=== PATIENT | male | born 1995 | race American Indian/Alaskan Native ===

== ENCOUNTER 2018-11-21 16:01 | Emergency (ER) | payer OTHER ==
[2018-11-21 16:12] VITALS: BP 116/71
--- NOTE | 2018-11-21 16:13 | Event Note ---
ED Screening Note Date of service: 11/21/18 Time: 16:11 ED Screening Note: 23 y/o male comes in for vomited twice. This initial assessment/diagnostic orders/clinical plan/treatment(s) is/are subject to change based on patients health status, clinical progression and re- assessment by fellow clinical providers in the ED. Further treatment and workup at subsequent clinical providers discretion. Patient/guardian urged not to elope from the ED as their condition may be serious if not clinically assessed and managed. Initial orders include:
[2018-11-21 17:08] LABS: Basophils # (Auto) 0.1 K/mm3 (0.0-0.1); Basophils % (Auto) 0.9 % (0.0-1.8); Eosinophils # (Auto) 0.1 K/mm3 (0.0-0.4); Eosinophils % (Auto) 2.7 % (0.0-4.3); Hematocrit 40.3 % (35.5-45.6); Hemoglobin 13.8 gm/dl (11.8-15.2); Lymphocytes # (Auto) 1.3 K/mm3 (1.2-5.4); Lymphocytes % (Auto) 24.4 % (13.4-35.0); Mean Corpuscular HGB Conc 34 % (32-34); Mean Corpuscular Volume 99 fl (84-94); Monocytes # (Auto) 0.6 K/mm3 (0.0-0.8); Monocytes % (Auto) 11.2 % (0.0-7.3); Platelet Count 238 K/mm3 (140-440); Red Blood Count 4.06 M/mm3 (3.65-5.03); Red Cell Distribution Width 12.3 % (13.2-15.2)
[2018-11-21 17:24] LABS: Alanine Aminotransferase 31 units/L (7-56); Albumin 4.3 g/dL (3.9-5); BUN/Creatinine Ratio 8; Blood Urea Nitrogen 8 mg/dL (9-20); Calcium 9.2 mg/dL (8.4-10.2); Hemolysis Index 5
--- NOTE | 2018-11-21 17:53 | Emergency Department Report ---
HPI - General Chief Complaint: Abdominal Pain Time Seen by Provider: 11/21/18 17:41 - HPI HPI: Room 33 The patient is a 23-year-old male presenting with chief complaint of abdominal pain. The patient states last night several hours after eating pizza and salad developed cramping in his right upper quadrant. Patient states the cramping is intermittent in the last occurred earlier this morning prompting him to come to the emergency department. Patient admits to 2 episodes of nausea and vomiting. Patient states he had a similar episode in 2016 and was told it was food poisoning. Patient currently denies abdominal pain. Patient denies diarrhea or fever Location: [See above] Duration: [See above] Quality: [See above] Severity: [See above] Modifying factors: [see above] Context: [see above] Mode of transportation: [not driving] ED Past Medical Hx - Past Medical History Previous Medical History?: No - Surgical History Hx Appendectomy: Yes - Family History Family history: no significant - Social History Smoking Status: Current Every Day Smoker (1/7 pack per day) Substance Use Type: None (denies illicit drug use), Alcohol (occasional) - Medications Home Medications: Home Medications Medication Instructions Recorded Confirmed Last Taken Type Acetaminophen/Codeine [Tylenol #3] 1 tab PO Q6H PRN #25 tab 10/06/14 Unknown Rx Ibuprofen [Motrin] 600 mg PO Q8H PRN #40 tablet 10/06/14 Unknown Rx Famotidine [Pepcid] 20 mg PO BID #20 tablet 11/21/18 Unknown Rx Ondansetron [Zofran ODT TAB] 8 mg PO Q8HR #20 tab.rapdis 11/21/18 Unknown Rx traMADol [Ultram] 50 mg PO Q6HR PRN #7 tablet 11/21/18 Unknown Rx ED Review of Systems ROS: Stated complaint: ABDOMINAL PAIN Other details as noted in HPI Constitutional: denies: fever Eyes: denies: eye pain ENT: denies: throat pain Respiratory: no symptoms reported Cardiovascular: denies: chest pain Endocrine: no symptoms reported Gastrointestinal: abdominal pain, nausea, vomiting. denies: diarrhea Genitourinary: denies: dysuria Musculoskeletal: denies: back pain Neurological: denies: headache Physical Exam - Physical Exam Vital Signs: Vital Signs 11/21/18 16:11 Temperature 98.4 F Pulse Rate 93 H Respiratory 18 Rate Blood Pressure 116/71 [Left] O2 Sat by Pulse 98 Oximetry Physical Exam: GENERAL: The patient is well-developed well-nourished male lying on stretcher not appearing to be in acute distress. [] HEENT: Normocephalic. Atraumatic. Extraocular motions are intact. Patient has moist mucous membranes. NECK: Supple. Trachea midline CHEST/LUNGS: Clear to auscultation. There is no respiratory distress noted. HEART/CARDIOVASCULAR: Regular. There is no tachycardia. There is no gallop rub or murmur. ABDOMEN: Abdomen is soft, nontender. Patient has normal bowel sounds. There is no abdominal distention. Absent Lange sign SKIN: There is no rash. There is no edema. There is no diaphoresis. NEURO: The patient is awake, alert, and oriented. The patient is cooperative. The patient has normal speech MUSCULOSKELETAL: There is no evidence of acute injury. ED Course Vital Signs 11/21/18 16:11 Temperature 98.4 F Pulse Rate 93 H Respiratory 18 Rate Blood Pressure 116/71 [Left] O2 Sat by Pulse 98 Oximetry ED Medical Decision Making - Lab Data Result diagrams: 11/21/18 16:42 11/21/18 16:42 Laboratory Tests 11/21/18 11/21/18 16:42 16:42 WBC 5.4 RBC 4.06 Hgb 13.8 Hct 40.3 MCV 99 H MCH 34 H MCHC 34 RDW 12.3 L Plt Count 238 Lymph % (Auto) 24.4 [place] % (Auto) 11.2 H Eos % (Auto) 2.7 Baso % (Auto) 0.9 Lymph # 1.3 [place] # 0.6 Eos # 0.1 Baso # 0.1 Seg Neutrophils % 60.8 Seg Neutrophils # 3.3 Sodium 144 Potassium 3.6 Chloride 105.6 Carbon Dioxide 27 Anion Gap 15 BUN 8 L Creatinine 1.0 Estimated GFR > 60 BUN/Creatinine Ratio 8 Glucose 95 Calcium 9.2 Total Bilirubin 0.40 AST 27 ALT 31 Alkaline Phosphatase 70 Total Protein 7.2 Albumin 4.3 Albumin/Globulin Ratio 1.5 Lipase 27 - Differential Diagnosis gastritis, peptic ulcer disease, cholelithiasis Critical care attestation.: If time is entered above; I have spent that time in minutes in the direct care of this critically ill patient, excluding procedure time. ED Disposition Clinical Impression: Acute gastritis, Acute abdominal pain, Nausea & vomiting Disposition: DC-01 TO HOME OR SELFCARE Is pt being admited?: No Does the pt Need Aspirin: No Condition: Stable Instructions: Abdominal Pain (ED) Additional Instructions: Return to the emergency department immediately should you develop worsening symptoms, fever, inability to tolerate food or liquid or any other concerns. Prescriptions: Famotidine [Pepcid] 20 mg PO BID #20 tablet traMADol [Ultram] 50 mg PO Q6HR PRN #7 tablet PRN Reason: Pain Ondansetron [Zofran ODT TAB] 8 mg PO Q8HR #20 tab.rapdis Referrals: SAMPSON SMALL MD [Primary Care Provider] - 3-5 Days Time of Disposition: 17:53
[2018-11-21 18:17] LABS: Bilirubin,Urine NEG (Negative); Blood,Urine NEG (Negative); Calcium Oxalate Crystals,Urine 1+; Color,Urine Yellow (Yellow); Mucus,Urine 3+ /HPF; Protein,Urine <15 mg/dL mg/dL (Negative)
== END 2018-11-21 18:18 | disposition home or self-care (01) ==
LOC: ED 16:01
DX: K29.00 Acute gastritis without bleeding (principal); F17.210 Nicotine dependence, cigarettes, uncomplicated; Z91.018 Allergy to other foods; Z88.0 Allergy status to penicillin
CPT/HCPCS: 36415; 80053; 81001; 83690; 85025; 99283

== ENCOUNTER 2022-01-30 01:41 | Emergency (ER) | payer SELFPAY ==
[2022-01-30 02:01] VITALS: BP 114/64
== END 2022-01-30 03:07 | disposition left against medical advice (07) ==
LOC: ED 01:41
DX: R10.31 Right lower quadrant pain (principal); R50.9 Fever, unspecified; Z53.21 Procedure and treatment not carried out due to patient leaving prior to being seen by health care provider